=== PATIENT | male | born 1980 | race Caucasian/White ===

== ENCOUNTER 2022-07-29 04:56 | Emergency (ER) | payer OTHER, SELFPAY ==
[2022-07-29] VITALS (10 sets, daily range): BP systolic 105–122; BP diastolic 56–73; PULSE 70–98; RESP 10–21; TEMP 36.8; O2SAT 96–100
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
== END 2022-07-29 08:09 | disposition home or self-care (01) ==
PROVIDERS: Emergency Provider Emergency Medicine; PCP Family Medicine
DX: S70.12XA Contusion of left thigh, initial encounter (principal); S00.81XA Abrasion of other part of head, initial encounter; V89.2XXA Person injured in unspecified motor-vehicle accident, traffic, initial encounter
CPT/HCPCS: 90471; 99284; 70450